=== PATIENT | female | born 1975 | race American Indian/Alaskan Native ===

== ENCOUNTER 2022-03-20 10:53 | Inpatient (IN) | payer MEDICARE ==
[2022-03-20] MEDS ORDERED: ASPIRIN 325 MG TAB PO ONE ×2 (13:08→19:00)
--- NOTE | 2022-03-20 13:32 | XRay Report ---
XR chest routine 2V INDICATION / CLINICAL INFORMATION: JAYME, chest pain. COMPARISON: None available. FINDINGS: SUPPORT DEVICES: None. HEART /PULMONARY VASCULATURE: No significant abnormality. LUNGS / PLEURA: No significant pulmonary or pleural abnormality. No pneumothorax. ADDITIONAL FINDINGS: No significant additional findings. IMPRESSION: 1. No acute findings. Signer Name: Kristian Groves MD Signed: 03/20/2022 1:28 PM Workstation Name: [id number]
[2022-03-20 15:02] LABS: Basophils # (Auto) 0.2 K/mm3 (0.0-0.1); Basophils % (Auto) 1.4 % (0.0-1.8); Eosinophils % (Auto) 0.1 % (0.0-4.3); Lymphocytes # (Auto) 2.7 K/mm3 (1.2-5.4); Lymphocytes % (Auto) 25.2 % (13.4-35.0); Mean Corpuscular HGB Conc 28 % (30-34); Monocytes # (Auto) 0.4 K/mm3 (0.0-0.8); Monocytes % (Auto) 4.1 % (0.0-7.3); Platelet Count 742 K/mm3 (140-440); Red Blood Count 4.98 M/mm3 (3.65-5.03); Red Cell Distribution Width 19.5 % (13.2-15.2)
[2022-03-20 15:47] LABS: Alanine Aminotransferase 16 units/L (7-56); Albumin 4.5 g/dL (3.9-5); Blood Urea Nitrogen 11 mg/dL (7-17); Calcium 10.1 mg/dL (8.4-10.2); Hemolysis Index 0
[2022-03-20 15:54] LABS: BUN/Creatinine Ratio 16
[2022-03-20 15:55] LABS: Hematocrit 27.4 % (30.3-42.9); Hemoglobin 7.7 gm/dl (10.1-14.3); Mean Corpuscular Volume 55 fl (79-97)
[2022-03-20 16:16] LABS: Chol/HDL Ratio 3.39 %; HDL Cholesterol 53 mg/dL (40-59); LDL Cholesterol,Direct 117 mg/dL (50-130)
[2022-03-20] MEDS ORDERED: SODIUM CHLORIDE 0.9% 500 ML 500 ML IV ONE (16:53)
[2022-03-20] MEDS ORDERED: MORPHINE 4 MG/1 ML INJ IV ONE (16:54)
[2022-03-20] MEDS ORDERED: ONDANSETRON 4 MG/2 ML INJ IV ONE (16:54)
[2022-03-20 17:39] LABS: INR 1.03 (0.87-1.13)
[2022-03-20] MEDS ORDERED: CLOPIDOGREL 75 MG TAB PO ONE (18:19)
[2022-03-20 18:35] LABS: Color,Urine Yellow (Yellow)
[2022-03-20 18:37] LABS: Mucus,Urine FEW /HPF
--- NOTE | 2022-03-20 18:38 | Emergency Department Report ---
ED General Adult HPI - General Chief complaint: Chest Pain Stated complaint: CHEST PAIN/SOB Time Seen by Provider: 03/20/22 16:49 Source: patient Mode of arrival: Ambulatory Limitations: No Limitations - History of Present Illness Initial comments: chest pain started last night while sitting , pain going to left side , with SOB, took some nitro but still there . history of CVA and CAD -: Gradual, hour(s) Location: chest, upper extremity Radiation: back Severity scale (0 -10): 6 Quality: aching Consistency: constant Improves with: none Worsens with: none - Related Data Allergies Allergy/AdvReac Type Severity Reaction Status Date / Time Penicillins Allergy Hives Verified 03/20/22 16:58 ED Review of Systems ROS: Stated complaint: CHEST PAIN/SOB Other details as noted in HPI Constitutional: denies: chills, fever Eyes: denies: eye pain, eye discharge, vision change ENT: denies: ear pain, throat pain Respiratory: denies: cough, shortness of breath, wheezing Cardiovascular: denies: chest pain, palpitations Endocrine: no symptoms reported Gastrointestinal: denies: abdominal pain, nausea, diarrhea Genitourinary: denies: urgency, dysuria, discharge Musculoskeletal: denies: back pain, joint swelling, arthralgia Skin: denies: rash, lesions Neurological: denies: headache, weakness, paresthesias Psychiatric: denies: anxiety, depression Hematological/Lymphatic: denies: easy bleeding, easy bruising ED Past Medical Hx - Past Medical History Previous Medical History?: Yes Hx Hypertension: Yes Hx Diabetes: Yes Additional medical history: strokes ,mi - Social History Smoking Status: Never Smoker ED Physical Exam - General Limitations: No Limitations General appearance: alert, in no apparent distress - Head Head exam: Present: atraumatic, normocephalic - Eye Eye exam: Present: normal appearance - ENT ENT exam: Present: mucous membranes moist - Neck Neck exam: Present: normal inspection - Respiratory Respiratory exam: Present: normal lung sounds bilaterally. Absent: respiratory distress - Cardiovascular Cardiovascular Exam: Present: regular rate, normal rhythm. Absent: systolic murmur, diastolic murmur, rubs, gallop - GI/Abdominal GI/Abdominal exam: Present: soft, normal bowel sounds - Extremities Exam Extremities exam: Present: normal inspection - Back Exam Back exam: Present: normal inspection - Neurological Exam Neurological exam: Present: alert, oriented X3 - Psychiatric Psychiatric exam: Present: normal affect, normal mood - Skin Skin exam: Present: warm, dry, intact, normal color. Absent: rash ED Course Vital Signs 03/20/22 03/20/22 03/20/22 10:58 16:48 18:10 Temperature 98.1 F 98.7 F Pulse Rate 90 102 H 94 H Respiratory 18 12 14 Rate Blood Pressure 166/89 Blood Pressure 105/94 169/89 185/91 [Left] O2 Sat by Pulse 99 100 100 Oximetry ED Medical Decision Making - Lab Data Result diagrams: 03/20/22 14:03 03/20/22 14:03 - EKG Data -: EKG Interpreted by Me EKG shows normal: sinus rhythm Rate: normal - EKG Data Interpretation: nonspecific ST-T wave jad - Radiology Data Radiology results: report reviewed, image reviewed - Medical Decision Making work up showed elevated trop, asprin nitro given , pain controlled, repeat trop was elevated spoke with dr arciniega he is accepting consult Critical care attestation.: If time is entered above; I have spent that time in minutes in the direct care of this critically ill patient, excluding procedure time. ED Disposition Clinical Impression: NSTEMI (non-ST elevated myocardial infarction) Disposition: ADMITTED INPATIENT Is pt being admited?: Yes Does the pt Need Aspirin: Yes Condition: Fair Referrals: PRIMARY CARE, [Primary Care Provider] - 3-5 Days
[2022-03-20 18:48] LABS: Amphetamine Screen,Urine PRESUMPTIVE NEGATIVE; Benzodiazepines Screen,Urine PRESUMPTIVE NEGATIVE; Cannabinoid Screen,Urine PRESUMPTIVE NEGATIVE; Cocaine Screen,Urine PRESUMPTIVE POSITIVE; Methadone Screen,Urine PRESUMPTIVE NEGATIVE; Opiate Screen,Urine PRESUMPTIVE NEGATIVE
--- NOTE | 2022-03-20 18:49 | History and Physical Report ---
History of Present Illness Chief complaint: My chest are hurting History of present illness: 46 YO Female with Obesity, HTN, DM, Metabolic Syndrome, ID, CVA, CAD presents to ED for evaluation. Patient reports "my chest are hurting". Patient states that she experienced a sudden onset of pain in her chest that began last night. Patient states the pain awoke her from sleep. Patient states the pain is 6/10, constant, crushing in nature, localized to the left chest, nonradiating, associated with shortness of breath, associated with diaphoresis, associated with decreased exercise tolerance. Patient transported to [facility] via private vehicle for further care and evaluation of the aforementioned symptoms. The patient was seen and evaluated emergency department. All lab and imaging studies reviewed. Patient found to have clinical symptoms consistent with NSTEMI, as well as diastolic CHF. Patient admitted to telemetry and initiated on ACS protocol as well as therapeutic anticoagulation in the emergency depart ment. Cardiology team consulted in ED. Patient denies fever, chills, productive cough, skin rash, recent contact, or known exposure to COVID-19. No prior admission for review. No medication listed at time of admission for reconciliation. Advanced care planning conducted in ED. Past History Past Medical History: diabetes, hypertension, other (See HPI) Past Surgical History: No surgical history, Other (Reviewed) Social history: single. denies: smoking, alcohol abuse Family history: diabetes, hypertension Medications and Allergies Allergies Allergy/AdvReac Type Severity Reaction Status Date / Time Penicillins Allergy Hives Verified 03/20/22 16:58 Active Meds: Active Medications Aspirin (Aspirin 325 Mg Tab) 325 mg PO ONCE ONE Stop: 03/20/22 19:01 Last Admin: 03/20/22 18:33 Dose: 325 mg Heparin Sodium/Sodium Chloride (Heparin/ 0.45% Nacl-25,000 Unit/500 Ml) 25,000 unit in 500 mls @ 20 mls/hr IV TITRATE DOUGLAS; Protocol Review of Systems Constitutional: no weight loss, no weight gain, no fever, no chills Ears, nose, mouth and throat: no ear pain, no ear discharge, no tinnitis, no decreased hearing, no nose pain Cardiovascular: chest pain, shortness of breath, decreased exercise tolerance Respiratory: no cough, no cough with sputum, no excessive sputum Gastrointestinal: no abdominal pain, no nausea, no vomiting, no diarrhea Genitourinary Female: no pelvic pain, no flank pain, no dysuria, no urinary frequency, no urgency Rectal: no pain, no incontinence, no bleeding Musculoskeletal: no neck stiffness, no neck pain, no arm numbness/tingling, no low back pain, no shooting leg pain Integumentary: no rash, no pruritis, no redness, no sores, no wounds Neurological: no head injury, no transient paralysis, no weakness, no parathesias, no tingling, no seizures Psychiatric: no anxiety, no change in sleep habits, no sleep disturbances, no change in appetite, no change in libido, no disorientation Endocrine: no cold intolerance, no polyphagia, no excessive thirst, no polyuria, no nocturia, no excessive sweating Hematologic/Lymphatic: no easy bruising, no easy bleeding Allergic/Immunologic: no urticaria, no allergic rhinitis Exam - Constitutional Vitals: Temp Pulse Resp BP Pulse Ox 98.7 F 94 H 14 185/91 100 03/20/22 16:48 03/20/22 18:10 03/20/22 18:10 03/20/22 18:10 03/20/22 18:10 General appearance: Present: mild distress, obese - EENT Eyes: Present: PERRL ENT: hearing intact, clear oral mucosa - Neck Neck: Present: supple, normal ROM - Respiratory Respiratory effort: normal Respiratory: bilateral: CTA - Cardiovascular Heart Sounds: Present: S1 & S2. Absent: rub, click - Extremities Extremities: pulses symmetrical, No edema Peripheral Pulses: within normal limits - Abdominal General gastrointestinal: Present: soft, non-tender, non-distended, normal bowel sounds Female genitourinary: Present: normal - Integumentary Integumentary: Present: clear, warm, dry - Musculoskeletal Musculoskeletal: gait normal, strength equal bilaterally - Psychiatric Psychiatric: appropriate mood/affect, intact judgment & insight - Neurologic Neurologic: CNII-XII intact, moves all extremities HEART Score - HEART Score Troponin: Troponin T 2.570 ng/mL (0.00-0.029) H* D 03/20/22 17:14 Results - Labs CBC & Chem 7: 03/20/22 14:03 03/20/22 14:03 Labs: Abnormal lab results 03/20/22 03/20/22 03/20/22 Range/Units 14:03 14:03 17:14 Hgb 7.7 L (10.1-14.3) gm/dl Hct 27.4 L (30.3-42.9) % MCV 55 L (79-97) fl MCH 16 L (28-32) pg MCHC 28 L (30-34) % RDW 19.5 H (13.2-15.2) % Plt Count 742 H (140-440) K/mm3 Baso # (Auto) 0.2 H (0.0-0.1) K/mm3 Glucose 170 H (65-100) mg/dL AST 109 H (5-40) units/L Troponin T 1.260 H* 2.570 H* D (0.00-0.029) ng/mL Total Protein 9.0 H (6.3-8.2) g/dL Assessment and Plan - Patient Problems (1) NSTEMI (non-ST elevated myocardial infarction) Current Visit: Yes Status: Acute Plan to address problem: ACS protocol: Serial cardiac enzymes, EKG, telemetry monitoring, therapeutic a nticoagulation, cardiology team consulted. Further care and evaluation as per cardiology team, echocardiogram ordered and pending at time of admission. (2) Angina at rest Current Visit: Yes Status: Acute Plan to address problem: ACS protocol: Serial cardiac enzymes, EKG, telemetry monitoring, cardiology team consulted in ED, morphine, submental oxygen, nitro, aspirin, further care and evaluation as per cardiology team. (3) Diastolic CHF Current Visit: Yes Status: Acute Qualifiers: Heart failure chronicity: acute Qualified Code(s): I50.31 - Acute diastolic (congestive) heart failure Plan to address problem: Strict I's/O, monitoring output shift, daily weight, afterload reduction, blood pressure control, echocardiogram ordered and pending at time of admission. Further care and evaluation as per cardiology team. (4) Hypertension Current Visit: Yes Status: Acute Qualifiers: Hypertension type: primary hypertension Qualified Code(s): I10 - Essential (primary) hypertension Plan to address problem: Monitor blood pressure every shift, continue medical management. (5) Diabetes Current Visit: Yes Status: Acute Plan to address problem: Consistent carbohydrate diet, Accu-Chek, insulin protocol, hypoglycemia protocol. (6) Metabolic syndrome Current Visit: Yes Status: Acute Plan to address problem: Supportive care, balanced diet, increase physical activity discharge, (7) Cocaine dependence Current Visit: Yes Status: Acute Plan to address problem: Outpatient cocaine dependence follow-up. Patient counseled regarding abstinence from cocaine use. (8) DVT prophylaxis Current Visit: Yes Status: Acute Plan to address problem: SCDs to bilateral lower extremities while in bed, therapeutic anticoagulation. (9) Advance care planning Current Visit: Yes Status: Acute Plan to address problem: Disease education conducted, care plan discussed, diagnosis discussed, prognosis discussed, patient is full code. Patient knowledges understanding and agreement with care plan, +30 minutes. (10) Preventative health care Current Visit: Yes Status: Acute Plan to address problem: Patient counseled on rate reduction, blood pressure control, outpatient follow- up with primary care physician for all age and risk factor appropriate screening test. +30 minutes.
[2022-03-20] MEDS ORDERED: NITROGLYCERIN 0.4 MG TAB SUBL SL PRN (18:56)
[2022-03-20] MEDS ORDERED: ONDANSETRON 4 MG/2 ML INJ IV PRN (18:56)
[2022-03-20] MEDS ORDERED: ACETAMINOPHEN 325 MG TAB PO PRN (18:56)
[2022-03-20] MEDS ORDERED: ALBUTEROL 2.5 MG/3 ML NEBU IH PRN (18:56)
[2022-03-20] MEDS ORDERED: MORPHINE 4 MG/1 ML INJ IV PRN (18:56)
[2022-03-20] MEDS ORDERED: hydrALAZINE 20 MG/1 ML INJ IV PRN (18:58)
[2022-03-20] MEDS: HEPARIN/ 0.45% NACL DRIP 25,000 UNIT/500 ML BAG IV SCH (19:12)
[2022-03-20] MEDS: oxyCODONE /ACETAMINOPHEN 5-325MG TAB PO PRN (22:33)
--- NOTE | 2022-03-21 08:28 | Progress Note ---
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 Pain was associated with shortness of breath, diaphoresis and decreased exercise tolerance. All lab and imaging studies reviewed. Patient found to have clinical symptoms consistent with NSTEMI, as well as diastolic CHF. Patient admitted to telemetry and initiated on ACS protocol as well as therapeutic anticoagulation in the emergency department. Cardiology team consulted in ED. the patient was admitted with diagnosis below: Acute coronary syndrome/NSTEMI/elevated troponin Acute diastolic heart failure Hypertension Diabetes mellitus type 2 Cocaine dependence 03/21/2022. Continue aspirin, Plavix and IV heparin for now. Continue to monitor serial troponins. Await cardiology consultation. Patient reports a negative stress test in Dr. Drake's office approximately 1 year ago. Continue Accu-Cheks and sliding scale insulin. Patient will be counseled on cocaine/drug abuse History Interval history: No new issues overnight Hospitalist Physical - Constitutional Vitals: Temp Pulse Resp BP Pulse Ox 97.7 F 76 18 125/66 98 03/21/22 03:09 03/21/22 04:43 03/21/22 03:09 03/21/22 03:09 03/21/22 04:48 General appearance: Present: no acute distress, obese HEART Score - HEART Score Troponin: Troponin T 5.300 ng/mL (0.00-0.029) H* D 03/21/22 00:41 Results - Labs CBC & Chem 7: 03/20/22 14:03 03/20/22 14:03 Labs: Laboratory Last Values WBC 10.6 K/mm3 (4.5-11.0) 03/20/22 14:03 RBC 4.98 M/mm3 (3.65-5.03) 03/20/22 14:03 Hgb 7.7 gm/dl (10.1-14.3) L 03/20/22 14:03 Hct 27.4 % (30.3-42.9) L 03/20/22 14:03 MCV 55 fl (79-97) L 03/20/22 14:03 MCH 16 pg (28-32) L 03/20/22 14:03 MCHC 28 % (30-34) L 03/20/22 14:03 RDW 19.5 % (13.2-15.2) H 03/20/22 14:03 Plt Count 742 K/mm3 (140-440) H 03/20/22 14:03 Lymph % (Auto) 25.2 % (13.4-35.0) 03/20/22 14:03 [place] % (Auto) 4.1 % (0.0-7.3) 03/20/22 14:03 Eos % (Auto) 0.1 % (0.0-4.3) 03/20/22 14:03 Baso % (Auto) 1.4 % (0.0-1.8) 03/20/22 14:03 Lymph # (Auto) 2.7 K/mm3 (1.2-5.4) 03/20/22 14:03 [place] # (Auto) 0.4 K/mm3 (0.0-0.8) 03/20/22 14:03 Eos # (Auto) 0.0 K/mm3 (0.0-0.4) 03/20/22 14:03 Baso # (Auto) 0.2 K/mm3 (0.0-0.1) H 03/20/22 14:03 Seg Neutrophils % 69.2 % (40.0-70.0) 03/20/22 14:03 Seg Neutrophils # 7.4 K/mm3 (1.8-7.7) 03/20/22 14:03 PT 14.6 Sec. (12.2-14.9) 03/20/22 17:14 INR 1.03 (0.87-1.13) 03/20/22 17:14 Heparin Anti-Xa Level 0.15 U.I./ml (0.3-0.7) L 03/21/22 00:41 Sodium 138 mmol/L (137-145) 03/20/22 14:03 Potassium 4.6 mmol/L (3.6-5.0) 03/20/22 14:03 Chloride 101.1 mmol/L (98-107) 03/20/22 14:03 Carbon Dioxide 25 mmol/L (22-30) 03/20/22 14:03 Anion Gap 17 mmol/L 03/20/22 14:03 BUN 11 mg/dL (7-17) 03/20/22 14:03 Creatinine 0.7 mg/dL (0.6-1.2) 03/20/22 14:03 Estimated GFR > 60 ml/min 03/20/22 14:03 BUN/Creatinine Ratio 16 % 03/20/22 14:03 Glucose 170 mg/dL (65-100) H 03/20/22 14:03 POC Glucose 225 mg/dL (70-105) H 03/20/22 21:22 Calcium 10.1 mg/dL (8.4-10.2) 03/20/22 14:03 Total Bilirubin 0.20 mg/dL (0.1-1.2) 03/20/22 14:03 AST 109 units/L (5-40) H 03/20/22 14:03 ALT 16 units/L (7-56) 03/20/22 14:03 Alkaline Phosphatase 128 units/L (35-129) 03/20/22 14:03 Troponin T 5.300 ng/mL (0.00-0.029) H* D 03/21/22 00:41 Total Protein 9.0 g/dL (6.3-8.2) H 03/20/22 14:03 Albumin 4.5 g/dL (3.9-5) 03/20/22 14:03 Albumin/Globulin Ratio 1.0 % 03/20/22 14:03 Triglycerides 83 mg/dL (2-149) 03/20/22 14:03 Cholesterol 180 mg/dL (50-199) 03/20/22 14:03 LDL Cholesterol Direct 117 mg/dL (50-130) 03/20/22 14:03 HDL Cholesterol 53 mg/dL (40-59) 03/20/22 14:03 Cholesterol/HDL Ratio 3.39 % 03/20/22 14:03 Lipase 39 units/L (13-60) 03/20/22 17:14 Urine Color Yellow (Yellow) 03/20/22 18:10 Urine Turbidity Hazy (Clear) 03/20/22 18:10 Specific [place] (Man) 1.020 (1.003-1.030) 03/20/22 18:10 Ur Protein (Man) <30 mg dl mg/dL (Negative) 03/20/22 18:10 Ur Ketones (Man) Negative (Negative) 03/20/22 18:10 Urine Bilirubin (Man) Negative (Negative) 03/20/22 18:10 Urine WBC (Auto) 1.0 /HPF (0.0-6.0) 03/20/22 18:10 Urine RBC (Auto) 1.0 /HPF (0.0-6.0) 03/20/22 18:10 U Epithel Cells (Auto) 1.0 /HPF (0-13.0) 03/20/22 18:10 Urine RBC (Manual) Negative (Negative) 03/20/22 18:10 Urine Mucus Few /HPF 03/20/22 18:10 Urine Opiates Screen Presumptive negative 03/20/22 18:10 Urine Methadone Screen Presumptive negative 03/20/22 18:10 Ur Barbiturates Screen Presumptive negative 03/20/22 18:10 Ur Phencyclidine Scrn Presumptive negative 03/20/22 18:10 Ur Amphetamines Screen Presumptive negative 03/20/22 18:10 U Benzodiazepines Scrn Presumptive negative 03/20/22 18:10 Urine Cocaine Screen Presumptive positive 03/20/22 18:10 U Marijuana (THC) Screen Presumptive negative 03/20/22 18:10 Drugs of Abuse Note Disclamer 03/20/22 18:10 Hernández/IV: Voiding Method Toilet Active Medications - Current Medications Current Medications: Generic Name Dose Route Start Last Admin Trade Name Freq PRN Reason Stop Dose Admin Acetaminophen 650 mg 03/20/22 18:56 Acetaminophen 325 Mg Tab PO Q4H PRN Pain MILD(1-3)/Fever >100.5/KING Albuterol 2.5 mg 03/20/22 18:56 Albuterol 2.5 Mg/3 Ml Nebu IH Q4HRT PRN Shortness Of Breath Hydralazine HCl 10 mg 03/20/22 18:58 Hydralazine 20 Mg/1 Ml Inj IV Q6HR PRN Hypertension Heparin Sodium/Sodium Chloride 25,000 unit in 500 mls @ 20 mls/hr 03/20/22 19:00 03/21/22 01:57 Heparin/ 0.45% Nacl-25,000 Unit/500 Ml IV 1,100 units/hr TITRATE DOUGLAS 22 mls/hr Titration Protocol 1,000 UNITS/HR Morphine Sulfate 2 mg 03/20/22 18:56 Morphine 4 Mg/1 Ml Inj IV Q8H PRN Pain , Severe (7-10) Nitroglycerin 0.4 mg 03/20/22 18:56 Nitroglycerin 0.4 Mg Tab Subl SL .Q5MIN PRN Chest Pain Ondansetron HCl 4 mg 03/20/22 18:56 Ondansetron 4 Mg/2 Ml Inj IV Q8H PRN Nausea And Vomiting Oxycodone/Acetaminophen 1 tab 03/20/22 18:56 03/20/22 22:33 Oxycodone /Acetaminophen 5-325mg Tab PO 1 tab Q6H PRN Administration Pain, Moderate (4-6) Sodium Chloride 10 ml 03/20/22 22:00 03/20/22 22:33 Sodium Chloride 0.9% 10 Ml Flush Syringe IV 10 ml BID DOUGLAS Administration Sodium Chloride 10 ml 03/20/22 18:56 Sodium Chloride 0.9% 10 Ml Flush Syringe IV PRN PRN LINE FLUSH
--- NOTE | 2022-03-21 10:01 | Consultation ---
History of Present Illness Consult date: 03/21/22 Consult reason: elevated troponin History of present illness: 46-year-old female presenting with acute onset chest pain. Troponin is consistent with non-ST elevation myocardial infarction. EKG showing nonspecific ST-T wave changes. Patient is currently asymptomatic. Patient reports having an acute MD back in July 2021. She was hospitalized at [facility]. A cardiac catheterization done then revealed 45% mid LAD stenosis, 80% ramus intermedius stenosis, 100% stenosis of a small caliber OM 2, 45% stenosis of the right PDA. She was recommended for medical therapy. Urine drug screen this admission was positive for cocaine. Past History Past Medical History: diabetes, hypertension, other (See HPI) Past Surgical History: No surgical history, Other (Reviewed) Social history: single. denies: smoking, alcohol abuse Family history: diabetes, hypertension Medications and Allergies Allergies Allergy/AdvReac Type Severity Reaction Status Date / Time Penicillins Allergy Hives Verified 03/20/22 16:58 Active Meds: Active Medications Acetaminophen (Acetaminophen 325 Mg Tab) 650 mg PO Q4H PRN PRN Reason: Pain MILD(1-3)/Fever >100.5/KING Albuterol (Albuterol 2.5 Mg/3 Ml Nebu) 2.5 mg IH Q4HRT PRN PRN Reason: Shortness Of Breath Hydralazine HCl (Hydralazine 20 Mg/1 Ml Inj) 10 mg IV Q6HR PRN PRN Reason: Hypertension Heparin Sodium/Sodium Chloride (Heparin/ 0.45% Nacl-25,000 Unit/500 Ml) 25,000 unit in 500 mls @ 20 mls/hr IV TITRATE DOUGLAS; Protocol Last Titration: 03/21/22 01:57 Dose: 1,100 units/hr, 22 mls/hr Morphine Sulfate (Morphine 4 Mg/1 Ml Inj) 2 mg IV Q8H PRN PRN Reason: Pain , Severe (7-10) Nitroglycerin (Nitroglycerin 0.4 Mg Tab Subl) 0.4 mg SL .Q5MIN PRN PRN Reason: Chest Pain Ondansetron HCl (Ondansetron 4 Mg/2 Ml Inj) 4 mg IV Q8H PRN PRN Reason: Nausea And Vomiting Oxycodone/Acetaminophen (Oxycodone /Acetaminophen 5-325mg Tab) 1 tab PO Q6H PRN PRN Reason: Pain, Moderate (4-6) Last Admin: 03/20/22 22:33 Dose: 1 tab Sodium Chloride (Sodium Chloride 0.9% 10 Ml Flush Syringe) 10 ml IV BID DOUGLAS Last Admin: 03/20/22 22:33 Dose: 10 ml Sodium Chloride (Sodium Chloride 0.9% 10 Ml Flush Syringe) 10 ml IV PRN PRN PRN Reason: LINE FLUSH Review of Systems All systems: negative Physical Examination Vital Signs Temp Pulse Resp BP Pulse Ox 98.1 F 90 18 105/94 99 03/20/22 10:58 03/20/22 10:58 03/20/22 10:58 03/20/22 10:58 03/20/22 10:58 General appearance: no acute distress HEENT: Positive: PERRL Neck: Positive: neck supple Cardiac: Positive: Reg Rate and Rhythm Lungs: Positive: Normal Exam Neuro: Positive: Grossly Intact Abdomen: Positive: Soft Extremities: Absent: edema Results 03/20/22 14:03 03/20/22 14:03 Cardiac Enzymes 03/20/22 Range/Units 14:03 AST 109 H (5-40) units/L Coagulation 03/20/22 Range/Units 17:14 PT 14.6 (12.2-14.9) Sec. INR 1.03 (0.87-1.13) Lipids 03/20/22 Range/Units 14:03 Triglycerides 83 (2-149) mg/dL Cholesterol 180 (50-199) mg/dL HDL Cholesterol 53 (40-59) mg/dL Cholesterol/HDL Ratio 3.39 % CBC 03/20/22 Range/Units 14:03 WBC 10.6 (4.5-11.0) K/mm3 RBC 4.98 (3.65-5.03) M/mm3 Hgb 7.7 L (10.1-14.3) gm/dl Hct 27.4 L (30.3-42.9) % Plt Count 742 H (140-440) K/mm3 Lymph # (Auto) 2.7 (1.2-5.4) K/mm3 Real # (Auto) 0.4 (0.0-0.8) K/mm3 Eos # (Auto) 0.0 (0.0-0.4) K/mm3 Baso # (Auto) 0.2 H (0.0-0.1) K/mm3 Comprehensive Metabolic Panel 03/20/22 Range/Units 14:03 Sodium 138 (137-145) mmol/L Potassium 4.6 (3.6-5.0) mmol/L Chloride 101.1 (98-107) mmol/L Carbon Dioxide 25 (22-30) mmol/L BUN 11 (7-17) mg/dL Creatinine 0.7 (0.6-1.2) mg/dL Glucose 170 H (65-100) mg/dL Calcium 10.1 (8.4-10.2) mg/dL AST 109 H (5-40) units/L ALT 16 (7-56) units/L Alkaline Phosphatase 128 (35-129) units/L Total Protein 9.0 H (6.3-8.2) g/dL Albumin 4.5 (3.9-5) g/dL - EKG Interpretation EKG shows: sinus rhythm EKG interpretations - Telemetry EKG Rhythm: Sinus Rhythm Assessment and Plan Non-ST elevation myocardial infarction Atherosclerotic cardiovascular disease Essential primary hypertension Type 2 diabetes mellitus Chronic microcytic anemia History of uterine fibroid Patient was scheduled for hysterectomy back in July. Surgery ended up being canceled due to acute MD. Cocaine abuse Cardiac cath performed July 2021 at [facility]: 45% mid LAD stenosis 80% ramus intermedius stenosis 100% small OM 2 stenosis 45% right PDA stenosis Recommended for medical therapy. Echocardiogram performed July 2021 at [facility]: Normal left ventricular ejection fraction Recommendations: Continue IV heparin. Start aspirin, statin therapy, transdermal nitroglycerin. Start iron replacement therapy. Patient is agreeable to proceed with coronary angiography in the morning. Advised against the use of cocaine.
[2022-03-21 10:13] LABS: Blood Urea Nitrogen 8 mg/dL (7-17); Calcium 9.4 mg/dL (8.4-10.2); Hemolysis Index 0
[2022-03-21 10:16] LABS: BUN/Creatinine Ratio 11
[2022-03-21] MEDS ORDERED: SODIUM CHLORIDE 0.9% 500 ML 500 ML IV SCH (11:00)
[2022-03-21] MEDS ORDERED: HEPARIN 10,000 UNITS/10 ML VIAL IV PRN (12:29)
[2022-03-21] MEDS: ASPIRIN 81 MG TAB CHEW PO SCH (13:00)
[2022-03-21] MEDS: NITROGLYCERIN 2% OINT 1 GM TP SCH (13:00)
[2022-03-21] MEDS: HEPARIN/ 0.45% NACL DRIP 25,000 UNIT/500 ML BAG IV SCH ×2 (14:07→19:38)
[2022-03-21] MEDS: FERROUS SULFATE 325 MG TAB PO SCH (20:59)
[2022-03-22 05:22] LABS: Amphetamine Screen,Urine Negative; Benzodiazepines Screen,Urine Negative; Cannabinoid Screen,Urine Negative; Methadone Screen,Urine Negative; Opiate Screen,Urine Negative
[2022-03-22 05:26] LABS: HCG Qualitative,Urine Negative (Negative)
[2022-03-22 05:31] LABS: Basophils # (Auto) 0.1 K/mm3 (0.0-0.1); Basophils % (Auto) 1.6 % (0.0-1.8); Eosinophils # (Auto) 0.2 K/mm3 (0.0-0.4); Eosinophils % (Auto) 2.9 % (0.0-4.3); Lymphocytes # (Auto) 2.9 K/mm3 (1.2-5.4); Lymphocytes % (Auto) 41.1 % (13.4-35.0); Mean Corpuscular HGB Conc 27 % (30-34); Monocytes # (Auto) 0.6 K/mm3 (0.0-0.8); Monocytes % (Auto) 9.2 % (0.0-7.3); Platelet Count 589 K/mm3 (140-440); Red Blood Count 4.23 M/mm3 (3.65-5.03); Red Cell Distribution Width 19.2 % (13.2-15.2)
[2022-03-22 05:34] LABS: Hematocrit 23.9 % (30.3-42.9); Hemoglobin 6.5 gm/dl (10.1-14.3); Mean Corpuscular Volume 57 fl (79-97)
[2022-03-22 05:48] LABS: Blood Urea Nitrogen 13 mg/dL (7-17); Calcium 8.8 mg/dL (8.4-10.2); Hemolysis Index 5
[2022-03-22 05:49] LABS: BUN/Creatinine Ratio 19
[2022-03-22 06:04] LABS: Cocaine Screen,Urine Positive
[2022-03-22] MEDS: NITROGLYCERIN 2% OINT 1 GM TP SCH (06:40)
[2022-03-22] MEDS ORDERED: HEPARIN/NS 5000 UNIT/500ML 1,000 ML IR ONE (09:35)
[2022-03-22] MEDS: fentaNYL 100 MCG/2 ML INJ ONE ×3 (09:42→11:13)
[2022-03-22] MEDS: LIDOCAINE MPF (2%) 20 MG/1 ML VIAL 5 ML ONE ×2 (09:43→10:45)
[2022-03-22] MEDS: MIDAZOLAM 2 MG/2 ML INJ ONE ×2 (09:44→10:45)
[2022-03-22] MEDS ORDERED: SODIUM CHLORIDE 0.9% 500 ML 500 ML IV SCH (10:00)
--- NOTE | 2022-03-22 10:03 | Progress Note ---
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 Pain was associated with shortness of breath, diaphoresis and decreased exercise tolerance. All lab and imaging studies reviewed. Patient found to have clinical symptoms consistent with NSTEMI, as well as diastolic CHF. Patient admitted to telemetry and initiated on ACS protocol as well as therapeutic anticoagulation in the emergency department. Cardiology team consulted in ED. the patient was admitted with diagnosis below: Acute coronary syndrome/NSTEMI/elevated troponin CAD. History of MS July 2021 Acute diastolic heart failure Hypertension Diabetes mellitus type 2 Cocaine dependence Chronic microcytic anemia 03/21/2022. Continue aspirin, Plavix and IV heparin for now. Continue to monitor serial troponins. Await cardiology consultation. Patient reports a negative stress test in Dr. Drake's office approximately 1 year ago. Continue Accu-Cheks and sliding scale insulin. Patient will be counseled on cocaine/drug abuse 03/22/2022. Patient with cardiac cath July 2021 that revealed 45% mid LAD stenosis, 80% ramus intermedius stenosis, 100% small OM 2 stenosis and 45% right PDA stenosis. Cardiology consulted. Continue IV heparin, aspirin, statin therapy and nitroglycerin. Patient for coronary angiography this morning. Patient counseled on cocaine/drug abuse. We will check iron studies, B12, f olate, reticulocyte count and LDH.. Check occult stools. Transfuse 1 unit PRBCs. History Interval history: No new issues overnight Hospitalist Physical - Constitutional Vitals: Temp Pulse Resp BP Pulse Ox 98.1 F 92 H 18 124/70 96 03/22/22 07:53 03/22/22 07:53 03/22/22 01:18 03/22/22 07:53 03/22/22 07:53 General appearance: Present: no acute distress - EENT Eyes: Present: PERRL, EOM intact ENT: hearing intact, clear oral mucosa, dentition normal - Neck Neck: Present: supple, normal ROM - Respiratory Respiratory effort: normal Respiratory: bilateral: CTA - Cardiovascular Rhythm: regular Heart Sounds: Present: S1 & S2. Absent: gallop, rub - Extremities Extremities: no ischemia, No edema, Full ROM - Abdominal General gastrointestinal: soft, non-tender, non-distended, normal bowel sounds - Integumentary Integumentary: Present: clear, warm, dry - Neurologic Neurologic: CNII-XII intact, moves all extremities HEART Score - HEART Score Troponin: Troponin T 5.300 ng/mL (0.00-0.029) H* D 03/21/22 00:41 Results - Labs CBC & Chem 7: 03/22/22 05:01 03/22/22 05:01 Labs: Laboratory Last Values WBC 7.1 K/mm3 (4.5-11.0) 03/22/22 05:01 RBC 4.23 M/mm3 (3.65-5.03) 03/22/22 05:01 Hgb 6.5 gm/dl (10.1-14.3) L 03/22/22 05:01 Hct 23.9 % (30.3-42.9) L 03/22/22 05:01 MCV 57 fl (79-97) L 03/22/22 05:01 MCH 15 pg (28-32) L 03/22/22 05:01 MCHC 27 % (30-34) L 03/22/22 05:01 RDW 19.2 % (13.2-15.2) H 03/22/22 05:01 Plt Count 589 K/mm3 (140-440) H 03/22/22 05:01 Lymph % (Auto) 41.1 % (13.4-35.0) H 03/22/22 05:01 [place] % (Auto) 9.2 % (0.0-7.3) H 03/22/22 05:01 Eos % (Auto) 2.9 % (0.0-4.3) 03/22/22 05:01 Baso % (Auto) 1.6 % (0.0-1.8) 03/22/22 05:01 Lymph # (Auto) 2.9 K/mm3 (1.2-5.4) 03/22/22 05:01 [place] # (Auto) 0.6 K/mm3 (0.0-0.8) 03/22/22 05:01 Eos # (Auto) 0.2 K/mm3 (0.0-0.4) 03/22/22 05:01 Baso # (Auto) 0.1 K/mm3 (0.0-0.1) 03/22/22 05:01 Seg Neutrophils % 45.2 % (40.0-70.0) 03/22/22 05:01 Seg Neutrophils # 3.2 K/mm3 (1.8-7.7) 03/22/22 05:01 PT 14.6 Sec. (12.2-14.9) 03/20/22 17:14 INR 1.03 (0.87-1.13) 03/20/22 17:14 Heparin Anti-Xa Level 0.36 U.I./ml (0.3-0.7) 03/21/22 17:29 Sodium 136 mmol/L (137-145) L 03/22/22 05:01 Potassium 3.1 mmol/L (3.6-5.0) L 03/22/22 05:01 Chloride 103.1 mmol/L (98-107) 03/22/22 05:01 Carbon Dioxide 26 mmol/L (22-30) 03/22/22 05:01 Anion Gap 10 mmol/L 03/22/22 05:01 BUN 13 mg/dL (7-17) 03/22/22 05:01 Creatinine 0.7 mg/dL (0.6-1.2) 03/22/22 05:01 Estimated GFR > 60 ml/min 03/22/22 05:01 BUN/Creatinine Ratio 19 % 03/22/22 05:01 Glucose 136 mg/dL (65-100) H 03/22/22 05:01 POC Glucose 124 mg/dL (70-105) H 03/22/22 07:55 Calcium 8.8 mg/dL (8.4-10.2) 03/22/22 05:01 Total Bilirubin 0.20 mg/dL (0.1-1.2) 03/20/22 14:03 AST 109 units/L (5-40) H 03/20/22 14:03 ALT 16 units/L (7-56) 03/20/22 14:03 Alkaline Phosphatase 128 units/L (35-129) 03/20/22 14:03 Troponin T 5.300 ng/mL (0.00-0.029) H* D 03/21/22 00:41 Total Protein 9.0 g/dL (6.3-8.2) H 03/20/22 14:03 Albumin 4.5 g/dL (3.9-5) 03/20/22 14:03 Albumin/Globulin Ratio 1.0 % 03/20/22 14:03 Triglycerides 83 mg/dL (2-149) 03/20/22 14:03 Cholesterol 180 mg/dL (50-199) 03/20/22 14:03 LDL Cholesterol Direct 117 mg/dL (50-130) 03/20/22 14:03 HDL Cholesterol 53 mg/dL (40-59) 03/20/22 14:03 Cholesterol/HDL Ratio 3.39 % 03/20/22 14:03 Lipase 39 units/L (13-60) 03/20/22 17:14 Urine Color Yellow (Yellow) 03/20/22 18:10 Urine Turbidity Hazy (Clear) 03/20/22 18:10 Specific [place] (Man) 1.020 (1.003-1.030) 03/20/22 18:10 Ur Protein (Man) <30 mg dl mg/dL (Negative) 03/20/22 18:10 Ur Ketones (Man) Negative (Negative) 03/20/22 18:10 Urine Bilirubin (Man) Negative (Negative) 03/20/22 18:10 Urine WBC (Auto) 1.0 /HPF (0.0-6.0) 03/20/22 18:10 Urine RBC (Auto) 1.0 /HPF (0.0-6.0) 03/20/22 18:10 U Epithel Cells (Auto) 1.0 /HPF (0-13.0) 03/20/22 18:10 Urine RBC (Manual) Negative (Negative) 03/20/22 18:10 Urine Mucus Few /HPF 03/20/22 18:10 Urine HCG, Qual Negative (Negative) 03/22/22 04:26 Urine Opiates Screen Negative 03/22/22 04:26 Urine Methadone Screen Negative 03/22/22 04:26 Ur Barbiturates Screen Negative 03/22/22 04:26 Ur Phencyclidine Scrn Negative 03/22/22 04:26 Ur Amphetamines Screen Negative 03/22/22 04:26 U Benzodiazepines Scrn Negative 03/22/22 04:26 Urine Cocaine Screen Positive 03/22/22 04:26 U Marijuana (THC) Screen Negative 08/22/22 04:26 Drugs of Abuse Note Disclamer 03/22/22 04:26 Hernández/IV: Voiding Method Toilet Active Medications - Current Medications Current Medications: Generic Name Dose Route Start Last Admin Trade Name Freq PRN Reason Stop Dose Admin Acetaminophen 650 mg 03/20/22 18:56 Acetaminophen 325 Mg Tab PO Q4H PRN Pain MILD(1-3)/Fever >100.5/KING Albuterol 2.5 mg 03/20/22 18:56 Albuterol 2.5 Mg/3 Ml Nebu IH Q4HRT PRN Shortness Of Breath Aspirin 81 mg 03/21/22 12:00 03/21/22 13:00 Aspirin 81 Mg Tab Chew PO 81 mg QDAY DOUGLAS Administration Atorvastatin Calcium 80 mg 03/21/22 22:00 03/21/22 21:00 Atorvastatin 40 Mg Tab PO 80 mg QHS DOUGLAS Administration Ferrous Sulfate 325 mg 03/21/22 22:00 03/21/22 20:59 Ferrous Sulfate 325 Mg Tab PO 325 mg BID DOUGLAS Administration Heparin Sodium (Porcine) 3,300 unit 03/21/22 12:29 Heparin 10,000 Units/10 Ml Vial 40 unit/kg (3300 unit) IV Q6H PRN Anti-Xa Assay < 0.1 units/ml Hydralazine HCl 10 mg 03/20/22 18:58 Hydralazine 20 Mg/1 Ml Inj IV Q6HR PRN Hypertension Heparin Sodium/Sodium Chloride 25,000 unit in 500 mls @ 20 mls/hr 03/20/22 19:00 03/21/22 19:38 Heparin/ 0.45% Nacl-25,000 Unit/500 Ml IV 1,200 units/hr TITRATE DOUGLAS 24 mls/hr Administration Protocol 1,000 UNITS/HR Sodium Chloride 500 mls @ 50 mls/hr 03/22/22 10:00 Nacl 0.9% 500 Ml IV DIRECT [facility] Morphine Sulfate 2 mg 03/20/22 18:56 Morphine 4 Mg/1 Ml Inj IV Q8H PRN Pain , Severe (7-10) Nitroglycerin 0.4 mg 03/20/22 18:56 Nitroglycerin 0.4 Mg Tab Subl SL .Q5MIN PRN Chest Pain Nitroglycerin 1 inch 03/21/22 14:00 03/22/22 06:40 Nitroglycerin 2% Oint 1 Gm TP 1 inch BIDNTG DOUGLAS Administration Protocol Ondansetron HCl 4 mg 03/20/22 18:56 Ondansetron 4 Mg/2 Ml Inj IV Q8H PRN Nausea And Vomiting Oxycodone/Acetaminophen 1 tab 03/20/22 18:56 03/20/22 22:33 Oxycodone /Acetaminophen 5-325mg Tab PO 1 tab Q6H PRN Administration Pain, Moderate (4-6) Sodium Chloride 10 ml 03/20/22 22:00 03/21/22 21:00 Sodium Chloride 0.9% 10 Ml Flush Syringe IV 10 ml BID DOUGLAS Administration Sodium Chloride 10 ml 03/20/22 18:56 Sodium Chloride 0.9% 10 Ml Flush Syringe IV PRN PRN LINE FLUSH
[2022-03-22] MEDS: ASPIRIN 81 MG TAB CHEW PO SCH ×2 (10:07→10:40)
[2022-03-22] MEDS: HEPARIN 10,000 UNITS/10 ML VIAL ONE ×3 (10:08→11:16)
[2022-03-22] MEDS: VERAPAMIL 5 MG/2 ML INJ ONE ×2 (10:08→10:47)
[2022-03-22] MEDS: NITROGLYCERIN SYRINGE 3 ML ONE ×2 (10:09→10:47)
[2022-03-22] MEDS ORDERED: POTASSIUM CHLORIDE 10 MEQ 10 MEQ/100 ML BAG IV ONE (11:00)
[2022-03-22] MEDS ORDERED: TIROFIBAN/NS 12,500 MCG/250 ML BAG IV ONE (11:05)
[2022-03-22] MEDS ORDERED: CLOPIDOGREL 300 MG TAB ONE (11:38)
--- NOTE | 2022-03-22 12:17 | Event Note ---
Date: 03/22/22 Cardiac catheterization was completed via the right radial approach. We found a subtotally occluded ramus intermedius with extensive intraluminal thrombus. The lesion was treated with successful balloon angioplasty followed by deployment of a 2.75 x 8 mm drug-eluting stent, excellent angiographic result. See procedure note for details. Recommendations: Aggrastat at half dose for 18 hours. Baby aspirin and Plavix. Other guideline directed medical therapy. Continue close monitoring of the anemia indices on IV and oral antiplatelets.
[2022-03-22] MEDS: FERROUS SULFATE 325 MG TAB PO SCH ×2 (12:20→21:49)
[2022-03-22] MEDS ORDERED: POTASSIUM CHLORIDE ER 20 MEQ TAB PO NR (12:21)
--- NOTE | 2022-03-22 12:26 | Cardiac Catherization Report ---
DATE OF SERVICE: 03/22/2022 CARDIAC CATHETERIZATION AND CORONARY ANGIOPLASTY REASON FOR PROCEDURE: The patient is a 46-year-old woman who presented to the hospital with chest pain, elevated cardiac troponin levels consistent with a non-ST elevation myocardial infarction. She was referred for cardiac catheterization as part of an early invasive therapy. Prior to the procedure, we noted that the patient was markedly anemic with a hematocrit ranging from 23 to 26. She reports a history of chronic anemia for which she has received blood transfusions in the past. She states that her condition is well known to her primary care doctor and is assessed to be due to heavy menstrual bleeding from uterine fibroids. At this time, there is no evidence of active bleeding, despite intravenous heparin therapy. PROCEDURES: 1. Left heart catheterization. 2. Selective left and right coronary angiography. 3. Left ventricular angiography. 4. Coronary angioplasty and stenting of the ramus intermedius artery. 5. Sedation time start 10:45, end 11:31. DESCRIPTION OF PROCEDURE: The patient was prepped and draped in a sterile fashion after informed consent. The right radial cath site was prepped and draped after negative Ace's test. The right radial artery was entered using the Seldinger technique, followed by placement of a 6-Guamanian hydrophilic sheath. Routine radial cocktail was administered via the sheath. Selective left and right coronary angiography was performed, using a 5-Guamanian Jin catheter. Following angiography, and a review of the angiograms, we exchanged for a 0.5 EBU guiding catheter for intended coronary intervention. The angiograms were reviewed. The left main coronary artery was without significant disease. The left anterior descending artery and its diagonal branches contained mild nonobstructive disease. A large ramus intermedius artery contained a 99% stenosis of its proximal segment, extending from the ostium. Associated with this lesion was the presence of extensive intraluminal filling defects consistent with a thrombus, and delayed antegrade, MARY-2 flow. This ramus lesion appeared to be the infarct lesion. The circumflex system was a small caliber system, that demonstrated a complete occlusion of its distal segment, with limited distal flow, consistent with a chronic total occlusion. The right coronary artery was a large dominant system. There was a 20-30% proximal stenosis, followed by mild nonobstructive disease of the distal segments. Left ventricular systolic function was well preserved with ejection fraction approximately 45-50% in the WRIGHT projection. CORONARY ANGIOPLASTY: We then selected a #0.014 inch Yarn Twister 50 guidewire and advanced through the lesional segment in the ramus. Following wire placement, the lesion was then predilated using a 2.5 mm balloon catheter. We then deployed a 2.75 x 8 mm drug-eluting stent, extending from the ostium of the ramus, and covering the entire primary lesion. The stent was inflated to optimal pressures. Following stenting, there was an excellent angiographic result, judaism of MARY-3 flow, and no evident residual filling defects. There was also no compromise of the ostium of a proximal side branch of the ramus. The procedure was well tolerated by the patient and there were no complications. The catheters and the sheaths were removed, hemostasis achieved using a TR band. She was returned to the postprocedure unit in stable condition. CONCLUSION: 1. The patient admitted with acute non-ST elevation myocardial infarction. 2. Cardiac catheterization revealed a greater than 99% stenosis of the ramus intermedius associated with extensive intraluminal thrombus. 3. Successful angioplasty and stenting with deployment of a 2.75 x 8 mm drug-eluting stent. 4. Chronic total occlusion of the distal segment of a small circumflex system is recommended for medical management. 5. Mild nonobstructive disease of the large LAD and large right coronary systems will be managed by aggressive risk factor modification. 6. Left ventricular systolic function is well preserved with ejection fraction 45-50% in the WRIGHT projection. The patient will be managed with Aggrastat at reduced dose for 18 hours and recognition of the intraluminal thrombus, aspirin and Plavix will be continued and the patient's anemia will be carefully monitored. TID: [id number] RECEIPT: [id number] LISA/ABHIJEET
[2022-03-22] MEDS ORDERED: SODIUM CHLORIDE 0.9% 1000 ML 1,000 ML IV SCH (12:30)
[2022-03-22] MEDS ORDERED: TIROFIBAN/NS 12,500 MCG/250 ML BAG IV SCH (14:00)
[2022-03-22] MEDS: METOPROLOL TARTRATE 50 MG TAB PO SCH ×2 (15:11→21:50)
[2022-03-22] MEDS: oxyCODONE /ACETAMINOPHEN 5-325MG TAB PO PRN ×2 (15:24→21:48)
[2022-03-22 23:07] LABS: Iron 10 ug/dL (37-170); Total Iron Binding Capacity 312 mcg/dL (250-450)
[2022-03-23 06:25] LABS: Basophils # (Auto) 0.1 K/mm3 (0.0-0.1); Eosinophils # (Auto) 0.2 K/mm3 (0.0-0.4); Eosinophils % (Auto) 2.5 % (0.0-4.3); Hematocrit 22.2 % (30.3-42.9); Hemoglobin 6.4 gm/dl (10.1-14.3); Lymphocytes # (Auto) 2.3 K/mm3 (1.2-5.4); Lymphocytes % (Auto) 25.6 % (13.4-35.0); Mean Corpuscular HGB Conc 29 % (30-34); Mean Corpuscular Volume 54 fl (79-97); Monocytes # (Auto) 0.9 K/mm3 (0.0-0.8); Monocytes % (Auto) 9.4 % (0.0-7.3); Platelet Count 522 K/mm3 (140-440); Red Blood Count 4.13 M/mm3 (3.65-5.03); Red Cell Distribution Width 19.9 % (13.2-15.2)
[2022-03-23 06:43] LABS: Blood Urea Nitrogen 10 mg/dL (7-17); Calcium 8.8 mg/dL (8.4-10.2); Hemolysis Index 16
[2022-03-23 07:00] LABS: BUN/Creatinine Ratio 14
[2022-03-23] MEDS ORDERED: SODIUM FERRIC GLUCON/SUCRO 125 MG in SODIUM CHLORIDE 0.9% 100 ML IV NR (07:35)
[2022-03-23] MEDS ORDERED: POTASSIUM CHLORIDE ER 20 MEQ TAB PO NR (07:35)
--- NOTE | 2022-03-23 07:55 | XRay Report ---
CHEST 1 VIEW 03/23/2022 7:26 AM INDICATION / CLINICAL INFORMATION: post pci. COMPARISON: 03/20/2022 FINDINGS: SUPPORT DEVICES: None. HEART / MEDIASTINUM: No significant abnormality. LUNGS / PLEURA: No significant pulmonary or pleural abnormality. No pneumothorax. ADDITIONAL FINDINGS: No significant additional findings. IMPRESSION: 1. No acute findings. Signer Name: Joseph Viera Jr, MD Signed: 03/23/2022 7:50 AM Workstation Name: [id number]
--- NOTE | 2022-03-23 08:30 | Electrocardiograph Report ---
[facility] Test Date: 2022-03-22 Test Time: 13:30:58 Pat Name: KIMBERLEE ORTIZ Department: Room: A465 1 Gender: F Juice Tester: KELLY : 1975 Requested By: SUNSHINE MOYER Order Number: [id number] Reading MD: Thierry Salamanca Measurements Intervals [place] Rate: 86 P: 67 [place]: 153 QRS: 13 QRSD: 96 T: 91 QT: 433 QTc: 518 Interpretive Statements Sinus rhythm Nonspecific T abnormalities, lateral leads Compared to ECG 03/21/2022 10:23:39 No significant changes Electronically Signed On 03-23-2022 8:29:54 EDT by Thierry Salamanca
--- NOTE | 2022-03-23 08:41 | Electrocardiograph Report ---
[facility] Test Date: 2022-03-23 Test Time: 06:14:44 Pat Name: KIMBERLEE ORTIZ Department: Room: A465 1 Gender: F Pest Locator: KELLY : 1975 Requested By: SUNSHINE MOYER Order Number: [id number] Reading MD: Thierry Salamanca Measurements Intervals [place] Rate: 86 P: 67 [place]: 153 QRS: 9 QRSD: 101 T: 95 QT: 426 QTc: 511 Interpretive Statements Sinus rhythm Nonspecific T abnormalities, lateral leads Compared to ECG 03/22/2022 13:30:58 No significant changes Electronically Signed On 03-23-2022 8:41:35 EDT by Thierry Salamanca
[2022-03-23] MEDS: CLOPIDOGREL 75 MG TAB PO SCH (10:44)
[2022-03-23] MEDS: METOPROLOL TARTRATE 50 MG TAB PO SCH ×2 (10:44→21:53)
[2022-03-23] MEDS: ASPIRIN 81 MG TAB CHEW PO SCH (10:44)
[2022-03-23] MEDS: FERROUS SULFATE 325 MG TAB PO SCH ×2 (10:44→21:52)
[2022-03-23] MEDS: LOSARTAN 25 MG TAB PO SCH (10:44)
--- NOTE | 2022-03-23 11:49 | Progress Note ---
Assessment and Plan - Patient Problems (1) Non-ST elevation myocardial infarction (NSTEMI) Current Visit: Yes Status: Acute Plan to address problem: Patient is stable following coronary intervention, Aggrastat will be discontinued today. Continue baby aspirin and Plavix and other guideline directed medical therapy. Anticipate discharge tomorrow morning if hematocrit is stable. Subjective Date of service: 03/23/22 Principal diagnosis: Non-ST elevation MD Interval history: Patient is comfortably no acute distress, looks and feels better, no further chest pain following yesterday's coronary intervention. The right wrist cath site is well-healed, no hematoma, no ecchymosis, normal radial pulses. Hematocrit is stable with her chronic anemia at -. Objective Vital Signs Temp Pulse Resp BP Pulse Ox 03/23/22 09:44 99 03/23/22 07:27 98.1 F 99 H 134/73 99 03/23/22 03:58 99 03/23/22 03:17 98.0 F 95 H 18 149/79 100 03/22/22 23:23 98.2 F 88 18 105/67 96 03/22/22 21:50 85 03/22/22 21:28 100 03/22/22 19:06 98.2 F 85 20 131/70 99 03/22/22 15:25 98.3 F 03/22/22 15:11 97 H 1421/72 03/22/22 12:15 98.6 F 95 H 165/86 99 - Physical Examination General: Appears Well, No Apparent Distress HEENT: Positive: PERRL Neck: Positive: neck supple Cardiac: Positive: Reg Rate and Rhythm Lungs: Positive: clear to auscultation Neuro: Positive: Grossly Intact Abdomen: Positive: Soft Skin: Positive: Clear Incision: Incision Site (Right radial cath site is well-healed) Extremities: Absent: edema - Labs and Meds Cardiac Enzymes 03/22/22 Range/Units 22:28 Lactate Dehydrogenase 602 H (91-180) units/L CBC 03/23/22 Range/Units 06:04 WBC 9.1 (4.5-11.0) K/mm3 RBC 4.13 (3.65-5.03) M/mm3 Hgb 6.4 L (10.1-14.3) gm/dl Hct 22.2 L (30.3-42.9) % Plt Count 522 H (140-440) K/mm3 Lymph # (Auto) 2.3 (1.2-5.4) K/mm3 [place] # (Auto) 0.9 H (0.0-0.8) K/mm3 Eos # (Auto) 0.2 (0.0-0.4) K/mm3 Baso # (Auto) 0.1 (0.0-0.1) K/mm3 Comprehensive Metabolic Panel 03/23/22 Range/Units 06:04 Sodium 139 (137-145) mmol/L Potassium 3.4 L (3.6-5.0) mmol/L Chloride 103.2 (98-107) mmol/L Carbon Dioxide 23 (22-30) mmol/L BUN 10 (7-17) mg/dL Creatinine 0.7 (0.6-1.2) mg/dL Glucose 137 H (65-100) mg/dL Calcium 8.8 (8.4-10.2) mg/dL
--- NOTE | 2022-03-23 12:41 | Progress Note ---
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 Pain was associated with shortness of breath, diaphoresis and decreased exercise tolerance. All lab and imaging studies reviewed. Patient found to have clinical symptoms consistent with NSTEMI, as well as diastolic CHF. Patient admitted to telemetry and initiated on ACS protocol as well as therapeutic anticoagulation in the emergency department. Cardiology team consulted in ED. the patient was admitted with diagnosis below: #NSTEMIstatus post placement of drug-eluting stent on 03/22/2022 #History of CAD complicated by UT (July 2021) #Acute diastolic heart failure #Hypertension #[id number] type 2 diabetes mellitus #Iron deficiency anemiairon level 10. Starting IV Ferrlecit 125 mg x 1 #Polysubstance dependence -Patient engages in the following substances: Cocaine -Counseled patient about the importance of cessation of substance abuse. Offered resources to help with quitting. Patient expresses understanding. -Time: +15 mins #Obesity #Weight loss counseling #Exercise counseling - BMI 30.5 - Counseled patient on the importance of weight loss, incorporating exercise, and dietary changes (lean meats, fresh fruits and vegetables, and water intake). Patient expresses understanding. - Time: +15 min 03/21/2022. Continue aspirin, Plavix and IV heparin for now. Continue to monitor serial troponins. Await cardiology consultation. Patient reports a negative stress test in Dr. Drake's office approximately 1 year ago. Continue Accu-Cheks and sliding scale insulin. Patient will be counseled on cocaine/drug abuse 03/22/2022. Patient with cardiac cath July 2021 that revealed 45% mid LAD stenosis, 80% ramus intermedius stenosis, 100% small OM 2 stenosis and 45% right PDA stenosis. Cardiology consulted. Continue IV heparin, aspirin, statin therapy and nitroglycerin. Patient for coronary angiography this morning. Patient counseled on cocaine/drug abuse. We will check iron studies, B12, f olate, reticulocyte count and LDH.. Check occult stools. Transfuse 1 unit PRBCs. 03/23/2022. Aggrastat discontinued. Transfusing IV Ferrlecit 125 mg x 1. Counseled patient about importance of lifestyle changes including dietary changes, incorporating exercise, limiting salt, continuing to follow-up with her medical providers. Patient expressed understanding. Cardiology believes patient will be cleared for medical discharge tomorrow morning. Disposition Plan: Continue medical management Total Time Spent with Patient (Minutes): 45 minutes History Interval history: Patient underwent left heart catheterization (radial approach) with placement of drug-eluting stent and initiation of Aggrastat. Patient tolerated the procedure well. Hospitalist Physical - Constitutional Vitals: Temp Pulse Resp BP Pulse Ox 98.3 F 79 18 133/68 100 03/23/22 11:44 03/23/22 11:44 03/23/22 03:17 03/23/22 11:44 03/23/22 11:44 General appearance: Present: no acute distress, well-nourished, obese - EENT Eyes: Present: PERRL, EOM intact ENT: hearing intact, clear oral mucosa, dentition normal - Neck Neck: Present: supple, normal ROM - Respiratory Respiratory effort: normal Respiratory: bilateral: CTA - Cardiovascular Rhythm: regular Heart Sounds: Present: S1 & S2 - Extremities Extremities: no ischemia, pulses intact, pulses symmetrical, No edema, normal temperature, normal color, Full ROM Peripheral Pulses: within normal limits - Abdominal General gastrointestinal: soft, non-tender, non-distended, normal bowel sounds - Integumentary Integumentary: Present: clear, warm, dry - Psychiatric Psychiatric: appropriate mood/affect, intact judgment & insight, memory intact, cooperative - Neurologic Neurologic: CNII-XII intact, moves all extremities - Allied Health Allied health notes reviewed: nursing HEART Score - HEART Score Troponin: Troponin T 3.840 ng/mL (0.00-0.029) H* D 03/23/22 06:04 Results - Labs CBC & Chem 7: 03/23/22 06:04 03/23/22 06:04 Labs: Laboratory Last Values WBC 9.1 K/mm3 (4.5-11.0) 03/23/22 06:04 RBC 4.13 M/mm3 (3.65-5.03) 03/23/22 06:04 Hgb 6.4 gm/dl (10.1-14.3) L 03/23/22 06:04 Hct 22.2 % (30.3-42.9) L 03/23/22 06:04 MCV 54 fl (79-97) L 03/23/22 06:04 MCH 15 pg (28-32) L 03/23/22 06:04 MCHC 29 % (30-34) L 03/23/22 06:04 RDW 19.9 % (13.2-15.2) H 03/23/22 06:04 Plt Count 522 K/mm3 (140-440) H 03/23/22 06:04 Lymph % (Auto) 25.6 % (13.4-35.0) 03/23/22 06:04 [place] % (Auto) 9.4 % (0.0-7.3) H 03/23/22 06:04 Eos % (Auto) 2.5 % (0.0-4.3) 03/23/22 06:04 Baso % (Auto) 1.0 % (0.0-1.8) 03/23/22 06:04 Lymph # (Auto) 2.3 K/mm3 (1.2-5.4) 03/23/22 06:04 [place] # (Auto) 0.9 K/mm3 (0.0-0.8) H 03/23/22 06:04 Eos # (Auto) 0.2 K/mm3 (0.0-0.4) 03/23/22 06:04 Baso # (Auto) 0.1 K/mm3 (0.0-0.1) 03/23/22 06:04 Seg Neutrophils % 61.5 % (40.0-70.0) 03/23/22 06:04 Seg Neutrophils # 5.6 K/mm3 (1.8-7.7) 03/23/22 06:04 Percent Retic 2.10 % (0.78-2.58) 03/22/22 22:28 PT 14.6 Sec. (12.2-14.9) 03/20/22 17:14 INR 1.03 (0.87-1.13) 03/20/22 17:14 Heparin Anti-Xa Level < 0.10 U.I./ml (0.3-0.7) L 03/22/22 22:28 Sodium 139 mmol/L (137-145) 03/23/22 06:04 Potassium 3.4 mmol/L (3.6-5.0) L 03/23/22 06:04 Chloride 103.2 mmol/L (98-107) 03/23/22 06:04 Carbon Dioxide 23 mmol/L (22-30) 03/23/22 06:04 Anion Gap 16 mmol/L 03/23/22 06:04 BUN 10 mg/dL (7-17) 03/23/22 06:04 Creatinine 0.7 mg/dL (0.6-1.2) 03/23/22 06:04 Estimated GFR > 60 ml/min 03/23/22 06:04 BUN/Creatinine Ratio 14 % 03/23/22 06:04 Glucose 137 mg/dL (65-100) H 03/23/22 06:04 POC Glucose 211 mg/dL (70-105) H 03/22/22 20:36 Calcium 8.8 mg/dL (8.4-10.2) 03/23/22 06:04 Iron 10 ug/dL (37-170) L 03/22/22 22:28 TIBC 312 mcg/dL (250-450) 03/22/22 22:28 Ferritin 7.7 ng/mL (10.0-200.0) L 03/22/22 22:28 Total Bilirubin 0.20 mg/dL (0.1-1.2) 03/20/22 14:03 AST 109 units/L (5-40) H 03/20/22 14:03 ALT 16 units/L (7-56) 03/20/22 14:03 Alkaline Phosphatase 128 units/L (35-129) 03/20/22 14:03 Lactate Dehydrogenase 602 units/L (91-180) H 03/22/22 22:28 Troponin T 3.840 ng/mL (0.00-0.029) H* D 03/23/22 06:04 Total Protein 9.0 g/dL (6.3-8.2) H 03/20/22 14:03 Albumin 4.5 g/dL (3.9-5) 03/20/22 14:03 Albumin/Globulin Ratio 1.0 % 03/20/22 14:03 Triglycerides 83 mg/dL (2-149) 03/20/22 14:03 Cholesterol 180 mg/dL (50-199) 03/20/22 14:03 LDL Cholesterol Direct 117 mg/dL (50-130) 03/20/22 14:03 HDL Cholesterol 53 mg/dL (40-59) 03/20/22 14:03 Cholesterol/HDL Ratio 3.39 % 03/20/22 14:03 Lipase 39 units/L (13-60) 03/20/22 17:14 Vitamin B12 548.7 pg/mL (211-911) 03/22/22 22:28 Folate 6.61 ng/mL (7.3-26.0) L 03/22/22 22:28 Urine Color Yellow (Yellow) 03/20/22 18:10 Urine Turbidity Hazy (Clear) 03/20/22 18:10 Specific [place] (Man) 1.020 (1.003-1.030) 03/20/22 18:10 Ur Protein (Man) <30 mg dl mg/dL (Negative) 03/20/22 18:10 Ur Ketones (Man) Negative (Negative) 03/20/22 18:10 Urine Bilirubin (Man) Negative (Negative) 03/20/22 18:10 Urine WBC (Auto) 1.0 /HPF (0.0-6.0) 03/20/22 18:10 Urine RBC (Auto) 1.0 /HPF (0.0-6.0) 03/20/22 18:10 U Epithel Cells (Auto) 1.0 /HPF (0-13.0) 03/20/22 18:10 Urine RBC (Manual) Negative (Negative) 03/20/22 18:10 Urine Mucus Few /HPF 03/20/22 18:10 Urine HCG, Qual Negative (Negative) 03/22/22 04:26 Urine Opiates Screen Negative 03/22/22 04:26 Urine Methadone Screen Negative 03/22/22 04:26 Ur Barbiturates Screen Negative 03/22/22 04:26 Ur Phencyclidine Scrn Negative 03/22/22 04:26 Ur Amphetamines Screen Negative 03/22/22 04:26 U Benzodiazepines Scrn Negative 03/22/22 04:26 Urine Cocaine Screen Positive 03/22/22 04:26 U Marijuana (THC) Screen Negative 03/22/22 04:26 Drugs of Abuse Note Disclamer 03/22/22 04:26 Hernández/IV: Voiding Method Toilet Active Medications - Current Medications Current Medications: Generic Name Dose Route Start Last Admin Trade Name Freq PRN Reason Stop Dose Admin Acetaminophen 650 mg 03/20/22 18:56 Acetaminophen 325 Mg Tab PO Q4H PRN Pain MILD(1-3)/Fever >100.5/KING Albuterol 2.5 mg 03/20/22 18:56 Albuterol 2.5 Mg/3 Ml Nebu IH Q4HRT PRN Shortness Of Breath Aspirin 81 mg 03/21/22 12:00 03/23/22 10:44 Aspirin 81 Mg Tab Chew PO 81 mg QDAY DOUGLAS Administration Atorvastatin Calcium 80 mg 03/22/22 22:00 03/22/22 21:49 Atorvastatin 20 Mg Tab PO 80 mg QHS DOUGLAS Administration Clopidogrel Bisulfate 75 mg 03/23/22 10:00 03/23/22 10:44 Clopidogrel 75 Mg Tab PO 75 mg QDAY DOUGLAS Administration Ferrous Sulfate 325 mg 03/21/22 22:00 03/23/22 10:44 Ferrous Sulfate 325 Mg Tab PO 325 mg BID DOUGLAS Administration Hydralazine HCl 10 mg 03/20/22 18:58 Hydralazine 20 Mg/1 Ml Inj IV Q6HR PRN Hypertension Sodium Chloride 500 mls @ 50 mls/hr 03/22/22 10:00 03/22/22 10:08 Nacl 0.9% 500 Ml IV 50 mls/hr DIRECT DOUGLAS Administration Tirofiban/Sodium Chloride 12,500 mcg in 250 mls @ 15 mls/hr 03/22/22 14:00 03/23/22 12:07 Aggrastat Drip (12.5 Mg/250 Ml) IV 03/23/22 13:59 15 mls/hr DIRECT DOUGLAS Administration Protocol Per Protocol Ferric Sodium Gluconate 110 mls @ 100 mls/hr 03/23/22 07:35 03/23/22 11:58 Complex 125 mg/ Sodium IV 03/23/22 23:00 100 mls/hr Chloride ONCE NR Administration Losartan Potassium 25 mg 03/23/22 10:00 03/23/22 10:44 Losartan 25 Mg Tab PO 25 mg QDAY DOUGLAS Administration Metoprolol Tartrate 50 mg 03/22/22 13:00 03/23/22 10:44 Metoprolol Tartrate 50 Mg Tab PO 50 mg BID DOUGLAS Administration Morphine Sulfate 2 mg 03/20/22 18:56 Morphine 4 Mg/1 Ml Inj IV Q8H PRN Pain , Severe (7-10) Nitroglycerin 0.4 mg 03/20/22 18:56 Nitroglycerin 0.4 Mg Tab Subl SL .Q5MIN PRN Chest Pain Ondansetron HCl 4 mg 03/20/22 18:56 Ondansetron 4 Mg/2 Ml Inj IV Q8H PRN Nausea And Vomiting Oxycodone/Acetaminophen 1 tab 03/20/22 18:56 03/22/22 21:48 Oxycodone /Acetaminophen 5-325mg Tab PO 1 tab Q6H PRN Administration Pain, Moderate (4-6) Potassium Chloride 40 meq 03/23/22 07:35 Potassium Chloride Er 20 Meq Tab PO 03/23/22 23:00 ONCE NR Sodium Chloride 10 ml 03/20/22 22:00 03/23/22 10:59 Sodium Chloride 0.9% 10 Ml Flush Syringe IV 10 ml BID DOUGLAS Administration Sodium Chloride 10 ml 03/20/22 18:56 Sodium Chloride 0.9% 10 Ml Flush Syringe IV PRN PRN LINE FLUSH
--- NOTE | 2022-03-23 13:46 | Electrocardiograph Report ---
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
--- NOTE | 2022-03-23 13:49 | Electrocardiograph Report ---
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
--- NOTE | 2022-03-23 13:52 | Electrocardiograph Report ---
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
--- NOTE | 2022-03-23 13:53 | Electrocardiograph Report ---
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
[2022-03-24 05:14] LABS: Hematocrit 20.3 % (30.3-42.9)
[2022-03-24 05:28] LABS: BUN/Creatinine Ratio 9; Blood Urea Nitrogen 7 mg/dL (7-17); Calcium 8.9 mg/dL (8.4-10.2); Hemolysis Index 8
[2022-03-24 05:41] LABS: Hemoglobin 5.8 gm/dl (10.1-14.3)
[2022-03-24] MEDS ORDERED: SODIUM CHLORIDE 0.9% 500 ML 500 ML IV ONE (06:17)
[2022-03-24] MEDS ORDERED: POTASSIUM CHLORIDE ER 20 MEQ TAB PO SCH (08:30)
[2022-03-24] MEDS: ASPIRIN 81 MG TAB CHEW PO SCH (09:41)
[2022-03-24] MEDS: CLOPIDOGREL 75 MG TAB PO SCH (09:42)
[2022-03-24] MEDS: FERROUS SULFATE 325 MG TAB PO SCH (09:42)
[2022-03-24] MEDS: LOSARTAN 25 MG TAB PO SCH (09:42)
[2022-03-24] MEDS: METOPROLOL TARTRATE 50 MG TAB PO SCH (09:43)
--- NOTE | 2022-03-24 11:59 | Discharge Summary ---
Providers - Providers Date of Admission: 03/20/22 18:56 Date of discharge: 03/24/22 Attending physician: IVON KAY MD 03/20/22 Consult to Cardiac Rehabilitation [CONS] Routine Reason For Exam: Phase 1 03/21/22 07:37 Consult to Physician [CONS] Routine Comment: Consulting Provider: EDER HEAD Physician Instructions: Reason For Exam: CP 03/22/22 Consult to Cardiac Rehabilitation [CONS] Routine Reason For Exam: post pci Primary care physician: DIRECTOR STRATEGY Hospitalization Reason for admission: NSTEMI, acute diastolic heart failure Condition: Fair Pertinent studies: Reviewed. Procedures: Left heart catheterization with balloon angioplasty and deployment of drug- eluting stent Hospital course: The patient is a 46 YO Female with Obesity, HTN, DM, Metabolic Syndrome, MA, CVA, CAD presents to ED for evaluation. Patient reports "my chest are hurting". Patient states that she experienced a sudden onset of pain in her chest that began last night. Patient states the pain awoke her from sleep. Patient states the pain is 6/10, constant, crushing in nature, localized to the left chest, nonradiating, associated with shortness of breath, associated with diaphoresis, associated with decreased exercise tolerance. Patient transported to [facility] via private vehicle for further care and evaluation of the aforementioned symptoms. The patient was seen and evaluated emergency department. All lab and imaging studies reviewed. Patient found to have clinical symptoms consistent with NSTEMI, as well as diastolic CHF. Patient admitted to telemetry and initiated on ACS protocol as well as therapeutic anticoagulation in the emergency department. Cardiology team consulted in ED. cardiology performed left heart catheterization (03/22/2022) via radial approach revealing a subtotal occluded ramus intermedius with extensive intraluminal thrombus that required treatment with balloon angioplasty and deployment of a drug-eluting stent. Patient received Aggrastat at half dose for approximately 18 hours. She will continue with goal-directed therapy. The patient was counseled at length about the importance of lifestyle changes (diet, exercise, and weight loss), the patient expressed understanding. Patient was also counseled at length about the importance of cessation of cocaine. The patient required blood transfusions (2 units) for anemia. Patient is medically clear for discharge. Disposition: 01 HOME / SELF CARE / HOMELESS Final Discharge Diagnosis (Prints w/discharge instructions): NSTEMI, history of CAD complicated by MA (July 2021), acute diastolic heart failure, hypertension, noninsulin-dependent type II, iron deficiency anemia, polysubstance dependence, obesity. Time spent for discharge: 45 min Core Measure Documentation - Palliative Care Palliative Care/ Comfort Measures: Not Applicable - Core Measures Any of the following diagnoses?: acute MA, heart failure - Acute MA Discharge Requirements Aspirin at discharge: Yes SAHRA/ARB for LVSD if EF <40%: Yes Beta kg at discharge: Yes Statin for LDL = or >100 mg/dl on DC: Yes - Heart Failure Discharge Requirements SAHRA/ARB for LVSD if EF <40%: Yes Beta kg at discharge: Yes Exam - Constitutional Vitals: Temp Pulse Resp BP Pulse Ox 98.2 F 85 16 125/67 100 03/24/22 10:58 03/24/22 08:00 03/24/22 10:58 03/24/22 10:58 03/24/22 09:28 General appearance: Present: no acute distress, well-nourished, obese - EENT Eyes: Present: PERRL, EOM intact ENT: hearing intact, clear oral mucosa, dentition normal - Neck Neck: Present: supple, normal ROM - Respiratory Respiratory effort: normal Respiratory: bilateral: CTA - Cardiovascular Rhythm: regular Heart Sounds: Present: S1 & S2 - Extremities Extremities: no ischemia, pulses intact, pulses symmetrical, No edema, normal temperature, normal color, Full ROM Peripheral Pulses: within normal limits - Abdominal General gastrointestinal: Present: soft, non-tender, non-distended, normal bowel sounds Female genitourinary: Present: deferred - Rectal Rectal Exam: deferred - Integumentary Integumentary: Present: clear, warm, dry - Musculoskeletal Musculoskeletal: strength equal bilaterally - Psychiatric Psychiatric: appropriate mood/affect, intact judgment & insight, memory intact, cooperative - Neurologic Neurologic: CNII-XII intact, moves all extremities - Allied Health Allied health notes reviewed: nursing Plan Activity: advance as tolerated Diet: low salt, diabetic Additional Instructions: The patient is a 46 YO Female with Obesity, HTN, DM, Metabolic Syndrome, MA, CVA, CAD presents to ED for evaluation. Patient reports "my chest are hurting". Patient states that she experienced a sudden onset of pain in her chest that began last night. Patient states the pain awoke her from sleep. Patient states the pain is 6/10, constant, crushing in nature, localized to the left chest, nonradiating, associated with shortness of breath, associated with diaphoresis, associated with decreased exercise tolerance. Patient transported to [facility] via private vehicle for further care and evaluation of the aforementioned symptoms. The patient was seen and evaluated emergency department. All lab and imaging studies reviewed. Patient found to have clinical symptoms consistent with NSTEMI, as well as diastolic CHF. Patient admitted to telemetry and initiated on ACS protocol as well as therapeutic anticoagulation in the emergency department. Cardiology team consulted in ED. cardiology performed left heart catheterization (03/22/2022) via radial approach revealing a subtotal occluded ramus intermedius with extensive intraluminal thrombus that required treatment with balloon angioplasty and deployment of a drug-eluting stent. Patient received Aggrastat at half dose for approximately 18 hours. She will continue with goal-directed therapy. The patient was counseled at length about the importance of lifestyle changes (diet, exercise, and weight loss), the patient expressed understanding. Patient was also counseled at length about the importance of cessation of cocaine. The patient required blood transfusions (2 units) for anemia. Patient is medically clear for discharge. Care Plan Goals: Patient is medically clear for discharge. Assessment: The patient is a 46 YO Female with Obesity, HTN, DM, Metabolic Syndrome, MA, CVA, CAD presents to ED for evaluation. Patient reports "my chest are hurting". Patient states that she experienced a sudden onset of pain in her chest that began last night. Patient states the pain awoke her from sleep. Patient states the pain is 6/10, constant, crushing in nature, localized to the left chest, nonradiating, associated with shortness of breath, associated with diaphoresis, associated with decreased exercise tolerance. Patient transported to [facility] via private vehicle for further care and evaluation of the aforementioned symptoms. The patient was seen and evaluated emergency department. All lab and imaging studies reviewed. Patient found to have clinical symptoms consistent with NSTEMI, as well as diastolic CHF. Patient admitted to telemetry and initiated on ACS protocol as well as therapeutic anticoagulation in the emergency department. Cardiology team consulted in ED. cardiology performed left heart catheterization (03/22/2022) via radial approach revealing a subtotal occluded ramus intermedius with extensive intraluminal thrombus that required treatment with balloon angioplasty and deployment of a drug-eluting stent. Patient received Aggrastat at half dose for approximately 18 hours. She will continue with goal-directed therapy. The patient was counseled at length about the importance of lifestyle changes (diet, exercise, and weight loss), the patient expressed understanding. Patient was also counseled at length about the importance of cessation of cocaine. The patient required blood transfusions (2 units) for anemia. Patient is medically clear for discharge. Follow up with: PRIMARY MD DEBORAH [Primary Care Provider] - 3-5 Days SUNSHINE MOYER MD [Staff Physician] - 14 Days Forms: Work/School Release Form Prescriptions: Aspirin [Aspirin BABY CHEW TAB] 81 mg PO QDAY #30 tab.chew Losartan [Cozaar] 25 mg PO QDAY #30 tablet Ferrous Sulfate [Feosol 325 MG tab] 325 mg PO DAILY #30 tablet Atorvastatin Calcium [Lipitor] 80 mg PO DAILY #30 tab Metoprolol [Lopressor TAB] 50 mg PO BID #60 tablet Clopidogrel [Plavix] 75 mg PO QDAY #30 tablet
--- NOTE | 2022-03-24 14:01 | Progress Note ---
Assessment and Plan - Patient Problems (1) Non-ST elevation myocardial infarction (NSTEMI) Current Visit: Yes Status: Acute Plan to address problem: Cardiac status is stable and asymptomatic following coronary intervention. Continue baby aspirin and Plavix and other guideline directed medical therapy. Hematocrit is significantly lower at 20, patient is expected to receive a blood transfusion today. She is otherwise stable for cardiac discharge after her blood transfusion. Continue baby aspirin and Plavix on discharge. Follow-up with Dr. HEAD who is her primary outpatient bookie. Subjective Date of service: 03/24/22 Principal diagnosis: Non-ST elevation [place] Interval history: The patient's hematocrit today is significantly lower at 20. She is apparently awaiting blood transfusion. There is no evidence of active bleeding. There are no cardiac complaints, no further chest pain, she otherwise looks and feels well. Objective Vital Signs Temp Pulse Resp BP Pulse Ox 03/24/22 13:06 99 03/24/22 12:44 98.1 F 84 16 138/74 99 03/24/22 12:14 98.8 F 80 16 130/70 03/24/22 12:00 84 03/24/22 11:59 98.7 F 83 16 138/73 03/24/22 10:58 98.2 F 16 125/67 03/24/22 09:28 100 03/24/22 08:00 98.1 F 85 19 124/65 99 03/24/22 04:12 98.1 F 86 18 101/66 96 03/24/22 04:00 99 03/23/22 23:12 97.9 F 83 18 125/64 96 03/23/22 22:00 99 03/23/22 21:53 85 03/23/22 19:41 98.0 F 85 18 120/68 99 03/23/22 16:02 98.2 F 85 124/55 98 03/23/22 16:00 18 96 - Physical Examination General: Appears Well, No Apparent Distress HEENT: Positive: PERRL Neck: Positive: neck supple Cardiac: Positive: Reg Rate and Rhythm Lungs: Positive: clear to auscultation Neuro: Positive: Grossly Intact Abdomen: Positive: Soft Skin: Positive: Clear Incision: Incision Site (Right radial cath site is well-healed) Extremities: Absent: edema - Labs and Meds CBC 03/24/22 Range/Units 04:59 Hgb 5.8 L* (10.1-14.3) gm/dl Hct 20.3 L (30.3-42.9) % Plt Count 458 H (140-440) K/mm3 Comprehensive Metabolic Panel 03/24/22 Range/Units 04:59 Sodium 142 (137-145) mmol/L Potassium 3.5 L (3.6-5.0) mmol/L Chloride 107.5 H (98-107) mmol/L Carbon Dioxide 26 (22-30) mmol/L BUN 7 (7-17) mg/dL Creatinine 0.8 (0.6-1.2) mg/dL Glucose 121 H (65-100) mg/dL Calcium 8.9 (8.4-10.2) mg/dL
[2022-03-24 19:24] VITALS: BP 130/88
== END 2022-03-24 19:28 | disposition home or self-care (01) | DRG 246 ==
LOC: ED 10:53 → 4A 18:56
PROVIDERS: ADMIT Internal Medicine; ATTEND Student in an Organized Health Care Education/Training Program
PROC: 027034Z Dilation of Coronary Artery, One Artery with Drug-eluting Intraluminal Device, Percutaneous Approach (ICD-10-PCS; principal; 2022-03-22)
PROC: 4A023N7 Measurement of Cardiac Sampling and Pressure, Left Heart, Percutaneous Approach (ICD-10-PCS; 2022-03-22)
PROC: B2151ZZ Fluoroscopy of Left Heart using Low Osmolar Contrast (ICD-10-PCS; 2022-03-22)
PROC: B2111ZZ Fluoroscopy of Multiple Coronary Arteries using Low Osmolar Contrast (ICD-10-PCS; 2022-03-22)
PROC: 30233N1 Transfusion of Nonautologous Red Blood Cells into Peripheral Vein, Percutaneous Approach (ICD-10-PCS; 2022-03-24)
DX: I21.4 Non-ST elevation (NSTEMI) myocardial infarction (principal); I50.31 Acute diastolic (congestive) heart failure; F14.20 Cocaine dependence, uncomplicated; E11.9 Type 2 diabetes mellitus without complications; E88.81 Metabolic syndrome and other insulin resistance; I25.10 Atherosclerotic heart disease of native coronary artery without angina pectoris; E66.9 Obesity, unspecified; I11.0 Hypertensive heart disease with heart failure; D50.9 Iron deficiency anemia, unspecified; Z71.3 Dietary counseling and surveillance; Z68.30 Body mass index [BMI] 30.0-30.9, adult; Z86.73 Personal history of transient ischemic attack (TIA), and cerebral infarction without residual deficits; Z88.0 Allergy status to penicillin; Z83.3 Family history of diabetes mellitus; Z82.49 Family history of ischemic heart disease and other diseases of the circulatory system
CPT/HCPCS: 36415; 71045; 71046; 80048; 80053; 80061; 80307; 81001; 81025; 82607; 82728; 82747; 82962; 83550; 83615; 83690; 84484; 85014; 85018; 85025; 85045; 85049; 85347; 85520; 85610; 86850; 86900; 86901; 86920; 92928; 93005; 93458; 99285; G0378; J1815; J3490; C1725; C1769; C1874; C1887; C1894; C9600; J1644; J2250; J2270; J2405; J2916; J3010; J3246; J3480; J7030; J7040; P9016; Q9967